=== PATIENT | female | born 1965 | race American Indian/Alaskan Native ===

== ENCOUNTER 2017-04-23 07:52 | Emergency (ER) | payer OTHER ==
[2017-04-23 08:14] VITALS: BP 144/91
[2017-04-23] MEDS ORDERED: DUONEB 0.5 MG-3 MG/3 ML SOLN IH ONE (08:19)
[2017-04-23 08:26] LABS: Basophils % (Auto) 0.9 % (0.0-1.8); Eosinophils % (Auto) 1.3 % (0.0-4.3); Hemoglobin 11.9 gm/dl (10.1-14.3); Mean Corpuscular HGB Conc 32 % (30-34); Mean Corpuscular Hemoglobin 29 pg (28-32); Mean Corpuscular Volume 90 fl (79-97); Platelet Count 275 K/mm3 (140-440); Red Blood Count 4.13 M/mm3 (3.65-5.03); White Blood Count 7.3 K/mm3 (4.5-11.0)
[2017-04-23 08:43] LABS: BUN/Creatinine Ratio 14.28; Blood Urea Nitrogen 10 mg/dL (7-17); Calcium 8.7 mg/dL (8.4-10.2); Carbon Dioxide 25 mmol/L (22-30); Glucose 97 mg/dL (65-100)
[2017-04-23 08:44] LABS: Anion Gap 18 mmol/L; Chloride 100.7 mmol/L (98-107); Potassium 4.1 mmol/L (3.6-5.0); Sodium 140 mmol/L (137-145)
[2017-04-23 08:47] LABS: INR 1.17 (0.87-1.13)
[2017-04-23 08:48] LABS: Partial Thromboplastin Time 30.2 Sec. (24.2-36.6)
[2017-04-23] MEDS ORDERED: MAGNESIUM SULFATE 2GM/50ML 2 GM/50 ML BAG IV ONE (08:53)
--- NOTE | 2017-04-23 11:32 | Emergency Department Report ---
HPI - General Chief Complaint: Dyspnea/Respdistress Time Seen by Provider: 04/23/17 08:17 - HPI HPI: The patient is a 52-year-old female who presents for evaluation of shortness of breath. Patient has history of asthma. The patient reports constant and severe shortness of breath since 5 AM this morning, nearly 4 hours prior to my evaluation, exacerbated with exertion or ambulation. She also reports bleeding from the nose for the past one hour. She denies trauma to the nose. The patient denies fever, cough, syncope, chest pain, hemoptysis, unilateral leg swelling, hormone use, recent immobilization or surgery, history of DVT or PE, recent cancer or chemotherapy. ED Past Medical Hx - Past Medical History Previous Medical History?: Yes Hx Diabetes: Yes Hx Asthma: Yes Hx COPD: Yes - Surgical History Past Surgical History?: Yes Additional Surgical History: Ovarian cyst removed - Social History Smoking Status: Current Every Day Smoker Substance Use Type: Prescribed - Medications Home Medications: Home Medications Medication Instructions Recorded Confirmed Last Taken Type ALBUTEROL Inhaler [ProAir HFA 2 puff IH QID PRN #1 inhalation 04/23/17 Unknown Rx Inhaler] Hydrochlorothiazide [HCTZ] 25 mg PO QDAY #30 tablet 04/23/17 Unknown Rx predniSONE [Deltasone] 20 mg PO QDAY #5 tab 04/23/17 Unknown Rx ED Review of Systems ROS: Stated complaint: NOISE BLEEDS/REBEKA/ DIARRHEA Other details as noted in HPI Constitutional: denies: fever ENT: denies: throat or neck pain Respiratory: denies: cough reports shortness of breath Cardiovascular: denies: chest pain Endocrine: denies unexplained weight loss or gain Gastrointestinal: denies: abdominal pain, nausea Genitourinary: denies: dysuria Musculoskeletal: denies: leg swelling Skin: denies: rash Neurological: denies: headache Hematological/Lymphatic: denies: easy bleeding or easy bruising Psych: denies sadness or hopelessness Physical Exam - Physical Exam Vital Signs: Vital Signs 04/23/17 04/23/17 04/23/17 07:56 08:10 08:13 Temperature 98.1 F 97.3 F L Pulse Rate 78 86 Pulse Rate [ Bilateral Throughout] Respiratory 18 19 Rate Respiratory Rate [Bilateral Throughout] Blood Pressure 147/102 Blood Pressure 144/91 [Left] O2 Sat by Pulse 100 98 98 Oximetry 04/23/17 04/23/17 08:43 08:49 Temperature Pulse Rate Pulse Rate [ 86 88 Bilateral Throughout] Respiratory Rate Respiratory 20 18 Rate [Bilateral Throughout] Blood Pressure Blood Pressure [Left] O2 Sat by Pulse Oximetry Physical Exam: General: well-nourished, well-developed, no acute distress Head: Normocephalic, atraumatic Eyes: normal sclera ENT: Anterior epistaxis presents to the left nasal septum, Mucous membranes are pink and moist Neck: trachea midline, neck supple, No neck stiffness, no cervical adenopathy Respiratory: Diminished breath sounds and wheezing present throughout lung [place] bilaterally, no costal retractions, no respiratory distress Cardio: S1 and S2 present, no murmurs, rubs, gallops, capillary refill is brisk Abdomen: Normoactive bowel sounds, soft abdomen, no rigidity, no guarding or rebound tenderness Chest WALL/Back: No tenderness to palpation of the chest wall, no CVA tenderness with percussion Musc: No pitting edema Skin: No rash Neuro: no facial drooping, normal speech Psych: Normal affect ED Course Vital Signs 04/23/17 04/23/17 04/23/17 07:56 08:10 08:13 Temperature 98.1 F 97.3 F L Pulse Rate 78 86 Pulse Rate [ Bilateral Throughout] Respiratory 18 19 Rate Respiratory Rate [Bilateral Throughout] Blood Pressure 147/102 Blood Pressure 144/91 [Left] O2 Sat by Pulse 100 98 98 Oximetry 04/23/17 04/23/17 08:43 08:49 Temperature Pulse Rate Pulse Rate [ 86 88 Bilateral Throughout] Respiratory Rate Respiratory 20 18 Rate [Bilateral Throughout] Blood Pressure Blood Pressure [Left] O2 Sat by Pulse Oximetry ED Medical Decision Making - Lab Data Result diagrams: 04/23/17 08:14 04/23/17 08:14 - Medical Decision Making The patient was seen and examined by myself. The patient is placed on a active directory architect and continuous pulse ox. On initial evaluation, the patient was found to be in no distress. Evaluation orders were placed. The patient is given a breathing treatment for, IV magnesium, and IV Solu-Medrol asthma. Nasal pincher and they have I's R placed in the nose. Chest x-ray negative for focal consolidation, pleural effusions, pulmonary congestion, pneumothorax, or other acute cardio pulmonary disease process. Lab results are grossly not concerning. The patient was reevaluated and reported that their symptoms were markedly improved, and nose bleeding is resolved. The patient was observed for greater than 1 hour without any recurrence of nose bleeding. On reexamination wheezing is resolved as well and the patient's found to have normal respirations and oxygen saturation on pulse oximetry. The patient is stable for discharge with outpatient follow-up. The patient is given follow-up and return instructions. The patient expressed understanding and agreed with the plan. The patient is given a prescription for prednisone. The patient is discharged in stable condition. Critical care attestation.: If time is entered above; I have spent that time in minutes in the direct care of this critically ill patient, excluding procedure time. ED Disposition Clinical Impression: Anterior epistaxis, Asthma with acute exacerbation in adult Disposition: DC-01 TO HOME OR SELFCARE Is pt being admited?: No Does the pt Need Aspirin: No Condition: Stable Instructions: Asthma (ED), Epistaxis (ED) Prescriptions: ALBUTEROL Inhaler [ProAir HFA Inhaler] 2 puff IH QID PRN #1 inhalation PRN Reason: Shortness Of Breath Hydrochlorothiazide [HCTZ] 25 mg PO QDAY #30 tablet predniSONE [Deltasone] 20 mg PO QDAY #5 tab Referrals: PRIMARY CARE, [Primary Care Provider] - 3-5 Days Forms: Work/School Release Form(ED) Time of Disposition: 11:28
--- NOTE | 2017-04-23 13:45 | XRay Report ---
Single view chest: History: Shortness of breath. Findings: Normal cardiomediastinal silhouette. Trachea is midline. No consolidation, pneumothorax or pleural effusion. Impression: No acute cardiopulmonary findings.
== END 2017-04-23 11:45 | disposition home or self-care (01) ==
LOC: ED 07:52
DX: J45.901 Unspecified asthma with (acute) exacerbation (principal); R04.0 Epistaxis; E11.9 Type 2 diabetes mellitus without complications; J45.909 Unspecified asthma, uncomplicated; J44.9 Chronic obstructive pulmonary disease, unspecified; F17.200 Nicotine dependence, unspecified, uncomplicated
CPT/HCPCS: 36415; 71010; 80048; 83880; 84484; 85025; 85610; 85730; 93005; 93010; 94640; 96365; 96366; 96375; 99284; J2930; J3475

== ENCOUNTER 2017-04-28 13:23 | Emergency (ER) | payer SELFPAY ==
[2017-04-28] MEDS ORDERED: MAGNESIUM SULFATE 2GM/50ML 2 GM/50 ML BAG IV ONE ×2 (14:50→14:56)
[2017-04-28] MEDS ORDERED: DUONEB 0.5 MG-3 MG/3 ML SOLN IH ONE (14:57)
[2017-04-28] MEDS ORDERED: ATROVENT IH ONE (15:43)
[2017-04-28] MEDS ORDERED: PROVENTIL IH ONE (15:44)
[2017-04-28 15:46] LABS: Basophils % (Auto) 0.4 % (0.0-1.8); Hemoglobin 11.2 gm/dl (10.1-14.3); Mean Corpuscular HGB Conc 32 % (30-34); Mean Corpuscular Hemoglobin 29 pg (28-32); Mean Corpuscular Volume 91 fl (79-97); Platelet Count 305 K/mm3 (140-440); Red Blood Count 3.83 M/mm3 (3.65-5.03); White Blood Count 7.9 K/mm3 (4.5-11.0)
[2017-04-28 15:48] LABS: Anion Gap 22 mmol/L; Blood Urea Nitrogen 16 mg/dL (7-17); Calcium 9.2 mg/dL (8.4-10.2); Carbon Dioxide 23 mmol/L (22-30); Chloride 95.7 mmol/L (98-107); Glucose 121 mg/dL (65-100); Potassium 4.1 mmol/L (3.6-5.0); Sodium 137 mmol/L (137-145)
--- NOTE | 2017-04-28 16:26 | Emergency Department Report ---
ED General Adult HPI - General Chief complaint: Dyspnea/Respdistress Stated complaint: REBEKA Time Seen by Provider: 04/28/17 15:32 Source: patient, EMS Mode of arrival: Stretcher Limitations: No Limitations - History of Present Illness Initial comments: Patient reports exacerbation of her asthma/COPD over the last few days. She states that she has been having "regular phlegm" which is clear. She has no fever or chills. She denies chest pain leg pain recent travel or any leg swelling. She has had many exacerbations of asthma before. She's currently not on prednisone but is on Symbicort. At the time of my encounter she was given serial nebs and she feels like she is ready for discharge. -: days(s) Consistency: constant (wheezing) Improves with: none Worsens with: none Associated Symptoms: denies other symptoms Treatments Prior to Arrival: none - Related Data Previous Rx's Medication Instructions Recorded Last Taken Type ALBUTEROL Inhaler [ProAir HFA 2 puff IH QID PRN #1 inhalation 04/23/17 Unknown Rx Inhaler] Hydrochlorothiazide [HCTZ] 25 mg PO QDAY #30 tablet 04/23/17 Unknown Rx predniSONE [Deltasone] 20 mg PO QDAY #5 tab 04/23/17 Unknown Rx ALBUTEROL Inhaler [Proair] 2 puff IH Q4H PRN #1 inhalation 04/28/17 Unknown Rx Budesoni/Formotero 160-4.5(Nf) 2 puff IH BID #1 inha 04/28/17 Unknown Rx [Symbicort 160-4.5 (Nf)] predniSONE [Deltasone] 40 mg PO QDAY #14 tab 04/28/17 Unknown Rx Allergies Allergy/AdvReac Type Severity Reaction Status Date / Time shellfish derived Allergy Swelling Verified 04/28/17 14:14 ED Review of Systems ROS: Stated complaint: REBEKA Other details as noted in HPI Constitutional: denies: chills, fever Eyes: denies: eye pain, eye discharge, vision change ENT: denies: ear pain, throat pain Respiratory: shortness of breath, wheezing. denies: cough Cardiovascular: denies: chest pain, palpitations Endocrine: no symptoms reported Gastrointestinal: denies: abdominal pain, nausea, vomiting, diarrhea Genitourinary: denies: urgency, dysuria, discharge Musculoskeletal: denies: back pain, joint swelling, arthralgia Skin: denies: rash, lesions Neurological: denies: headache, weakness, paresthesias Psychiatric: denies: anxiety, depression Hematological/Lymphatic: denies: easy bleeding, easy bruising ED Past Medical Hx - Past Medical History Previous Medical History?: Yes Hx Diabetes: Yes Hx Asthma: Yes Hx COPD: Yes - Surgical History Past Surgical History?: Yes Additional Surgical History: Ovarian cyst removed - Social History Smoking Status: Never Smoker - Medications Home Medications: Home Medications Medication Instructions Recorded Confirmed Last Taken Type ALBUTEROL Inhaler [ProAir HFA 2 puff IH QID PRN #1 inhalation 04/23/17 Unknown Rx Inhaler] Hydrochlorothiazide [HCTZ] 25 mg PO QDAY #30 tablet 04/23/17 Unknown Rx predniSONE [Deltasone] 20 mg PO QDAY #5 tab 04/23/17 Unknown Rx ALBUTEROL Inhaler [Proair] 2 puff IH Q4H PRN #1 inhalation 04/28/17 Unknown Rx Budesoni/Formotero 160-4.5(Nf) 2 puff IH BID #1 inha 04/28/17 Unknown Rx [Symbicort 160-4.5 (Nf)] predniSONE [Deltasone] 40 mg PO QDAY #14 tab 04/28/17 Unknown Rx ED Physical Exam - General Limitations: No Limitations General appearance: alert, in no apparent distress - Head Head exam: Present: atraumatic, normocephalic - Eye Eye exam: Present: normal appearance. Absent: scleral icterus - ENT ENT exam: Present: normal exam, mucous membranes moist - Neck Neck exam: Present: normal inspection. Absent: tenderness, meningismus - Respiratory Respiratory exam: Present: wheezes (slight end expiratory wheeze only). Absent : respiratory distress, accessory muscle use, decreased breath sounds - Cardiovascular Cardiovascular Exam: Present: regular rate, normal rhythm. Absent: systolic murmur, diastolic murmur, rubs, gallop - GI/Abdominal GI/Abdominal exam: Present: soft, normal bowel sounds. Absent: distended, tenderness, guarding, rebound, rigid - Extremities Exam Extremities exam: Present: normal inspection, normal capillary refill. Absent: tenderness, pedal edema, joint swelling, calf tenderness - Back Exam Back exam: Present: normal inspection - Neurological Exam Neurological exam: Present: alert, oriented X3, CN II-XII intact. Absent: motor sensory deficit - Psychiatric Psychiatric exam: Present: normal affect, normal mood - Skin Skin exam: Present: warm, dry, intact, normal color. Absent: rash ED Course Vital Signs 04/28/17 04/28/17 04/28/17 14:14 14:39 14:40 Temperature 98.8 F Pulse Rate 78 Respiratory 20 Rate Blood Pressure 109/77 O2 Sat by Pulse 100 98 99 Oximetry 04/28/17 04/28/17 04/28/17 14:43 14:45 15:01 Temperature Pulse Rate 77 86 82 Respiratory 14 18 10 L Rate Blood Pressure O2 Sat by Pulse 98 97 94 Oximetry 04/28/17 04/28/17 04/28/17 15:03 15:15 15:27 Temperature Pulse Rate 92 H 69 Respiratory 18 15 22 Rate Blood Pressure 122/77 O2 Sat by Pulse 97 Oximetry 04/28/17 04/28/17 04/28/17 15:30 15:41 15:51 Temperature Pulse Rate 76 75 73 Respiratory 11 L 13 14 Rate Blood Pressure 129/83 129/83 113/63 O2 Sat by Pulse 93 97 98 Oximetry 04/28/17 04/28/17 04/28/17 16:00 16:11 16:21 Temperature Pulse Rate 83 87 Respiratory 12 18 12 Rate Blood Pressure 128/79 128/79 129/82 O2 Sat by Pulse 96 97 98 Oximetry 04/28/17 04/28/17 04/28/17 16:30 16:41 16:51 Temperature Pulse Rate 78 89 86 Respiratory 16 12 19 Rate Blood Pressure 117/75 117/75 112/74 O2 Sat by Pulse 98 94 96 Oximetry - Reevaluation(s) Reevaluation #1: She improved with nebs. She was road tested. She did fine and she was discharged. 04/28/17 17:27 ED Medical Decision Making - Lab Data Result diagrams: 04/28/17 15:12 04/28/17 15:12 Laboratory Results - last 24 hr 04/28/17 04/28/17 15:12 15:12 WBC 7.9 RBC 3.83 Hgb 11.2 Hct 35.0 MCV 91 MCH 29 MCHC 32 RDW 18.0 H Plt Count 305 Lymph % (Auto) 12.0 L [place] % (Auto) 1.5 Eos % (Auto) 0.0 Baso % (Auto) 0.4 Lymph # 1.0 L [place] # 0.1 Eos # 0.0 Baso # 0.0 Seg Neutrophils % 86.1 H Seg Neutrophils # 6.8 Sodium 137 Potassium 4.1 Chloride 95.7 L Carbon Dioxide 23 Anion Gap 22 BUN 16 Creatinine 0.5 L Estimated GFR > 60 BUN/Creatinine Ratio 32.00 Glucose 121 H Calcium 9.2 Troponin T < 0.010 - EKG Data -: EKG Interpreted by Me EKG shows normal: sinus rhythm, axis, intervals Rate: normal - EKG Data Interpretation: other (the patient does have somewhat low voltage in the standard leads. There is a tiny R-wave in both 1 and aVL. I don't think this is indicative of a lateral infarct. There is no evidence for inferior infarct either. I believe these are nonspecific changes and may be related to the patient's habitus I don't believe they are diagnostic of old zone.) - Radiology Data Radiology results: report reviewed interpreted by me: No acute process per radiologist Critical care attestation.: If time is entered above; I have spent that time in minutes in the direct care of this critically ill patient, excluding procedure time. ED Disposition Clinical Impression: Exacerbation of asthma Disposition: DC-01 TO HOME OR SELFCARE Is pt being admited?: No Does the pt Need Aspirin: No Condition: Stable Instructions: Asthma (ED) Additional Instructions: Return any acute change or problem. Follow-up with a primary care provider. Prescriptions: ALBUTEROL Inhaler [Proair] 2 puff IH Q4H PRN #1 inhalation PRN Reason: Shortness Of Breath Budesoni/Formotero 160-4.5(Nf) [Symbicort 160-4.5 (Nf)] 2 puff IH BID #1 inha predniSONE [Deltasone] 40 mg PO QDAY #14 tab Referrals: PRIMARY CARE, [Primary Care Provider] - 3-5 Days [facility] [Provider Group] - 2-3 Days Time of Disposition: 17:22
--- NOTE | 2017-04-28 16:36 | XRay Report ---
Single view chest: Compared to 04/23/17. History: Shortness of breath. Findings: Normal cardiomediastinal silhouette. Trachea is midline. No consolidation, pneumothorax or pleural effusion. Impression: No acute cardiopulmonary findings.
[2017-04-28] MEDS ORDERED: DELTASONE PO ONE (17:02)
[2017-04-28 17:15] VITALS: BP 112/74
== END 2017-04-28 17:28 | disposition home or self-care (01) ==
LOC: ED 13:23
DX: J45.901 Unspecified asthma with (acute) exacerbation (principal); E11.9 Type 2 diabetes mellitus without complications; J45.909 Unspecified asthma, uncomplicated; J44.9 Chronic obstructive pulmonary disease, unspecified; Z91.013 Allergy to seafood
CPT/HCPCS: 36415; 71010; 80048; 84484; 85025; 93005; 93010; 96365; 99284; J3475

== ENCOUNTER 2020-08-26 05:29 | Emergency (ER) | payer SELFPAY ==
[2020-08-26] MEDS ORDERED: ACETAMINOPHEN 325 MG TAB ONE (05:46)
[2020-08-26] MEDS ORDERED: ACETAMINOPHEN 325 MG TAB PO ONE (06:07)
[2020-08-26] MEDS ORDERED: ALBUTEROL 2.5 MG/3 ML NEBU IH ONE (08:00)
[2020-08-26] MEDS ORDERED: IBUPROFEN 600 MG TAB PO ONE (08:00)
[2020-08-26] MEDS ORDERED: predniSONE 50 MG TAB PO ONE (08:00)
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
[2020-08-26] MEDS ORDERED: SODIUM CHLORIDE 0.9% 1000 ML 1,000 ML ONE (09:05)
[2020-08-26] MEDS ORDERED: SODIUM CHLORIDE 0.9% 1000 ML 1,000 ML IV ONE ×2 (09:28→11:20)
[2020-08-26 09:44] LABS: Basophils # (Auto) 0.1 K/mm3 (0.0-0.1); Basophils % (Auto) 0.7 % (0.0-1.8); Eosinophils % (Auto) 0.1 % (0.0-4.3); Hematocrit 33.2 % (30.3-42.9); Hemoglobin 11.4 gm/dl (10.1-14.3); Lymphocytes # (Auto) 1.1 K/mm3 (1.2-5.4); Lymphocytes % (Auto) 10.5 % (13.4-35.0); Mean Corpuscular HGB Conc 34 % (30-34); Mean Corpuscular Volume 98 fl (79-97); Monocytes % (Auto) 9.6 % (0.0-7.3); Red Blood Count 3.37 M/mm3 (3.65-5.03); Red Cell Distribution Width 13.8 % (13.2-15.2)
[2020-08-26 09:47] LABS: Platelet Count 78 K/mm3 (140-440)
[2020-08-26 10:06] LABS: Alanine Aminotransferase 28 units/L (7-56); Albumin 2.9 g/dL (3.9-5); Bilirubin,Direct 1.1 mg/dL (0-0.2); Blood Urea Nitrogen 20 mg/dL (7-17); Calcium 8.4 mg/dL (8.4-10.2); Hemolysis Index 55
[2020-08-26 10:17] LABS: BUN/Creatinine Ratio 29
[2020-08-26 13:29] VITALS: BP 112/44
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
[2020-08-26 16:11] LABS: Bacteria,Urine 1+ /HPF (Negative); Bilirubin,Urine NEG (Negative); Blood,Urine SM (Negative); Color,Urine Amber (Yellow); Mucus,Urine FEW /HPF
== END 2020-08-26 16:06 | disposition home or self-care (01) ==
LOC: ED 05:29
DX: J20.9 Acute bronchitis, unspecified (principal); R52 Pain, unspecified; E11.9 Type 2 diabetes mellitus without complications; J44.9 Chronic obstructive pulmonary disease, unspecified; Z98.890 Other specified postprocedural states; Z91.013 Allergy to seafood; Z79.899 Other long term (current) drug therapy
CPT/HCPCS: 36415; 74177; 80048; 80076; 81001; 83690; 85025; 86850; 86900; 86901; 87086; 94640; 96360; 96361; 99284; J7030; J7512; Q9967; 94644